=== PATIENT | male | born 1935 | race Caucasian/White ===

== ENCOUNTER → 2018-07-02 | Outpatient (CLI) | payer MEDICARE ==
--- NOTE | 2018-07-02 17:30 | RAD ---
Complete abdomen ultrasound study Clinical indications: Abnormal liver function test FINDINGS: No focal aneurysmal dilatation of the abdominal aorta is seen. No focal pancreatic mass is seen. The intrahepatic portion of the IVC is unremarkable. The liver measures 15.2 cm in length which is normal. No hepatic mass is seen. There is a cyst of the liver measuring 2.7 cm. The gallbladder is surgically absent. The extrahepatic bile duct measures 8 mm in caliber. The length of the right kidney is 11.1 cm. The length of left kidney is 11.9 cm. No hydronephrosis or renal mass or perinephric fluid collection is seen on either side. Cysts of the right kidney are seen. There is a prominent cyst of the left kidney measuring 8.1 cm. The spleen measures 10.6 cm in length which is normal. No ascites is seen. IMPRESSION: Extra hepatic bile duct is mildly dilated measuring 8 mm which may be seen normally after cholecystectomy. However, given the elevation of the abnormal liver function tests, distal common bile duct obstruction cannot be excluded. Electronically signed by: Aidan Polo MD (07/02/2018 5:27 PM) [email or web address]
== END | disposition home or self-care (01) ==
LOC: US 06-29 09:51
PROVIDERS: ATTEND Family Medicine
DX: N28.1 Cyst of kidney, acquired (principal); Z90.49 Acquired absence of other specified parts of digestive tract
CPT/HCPCS: 76700

== ENCOUNTER 2018-10-17 15:46 | Emergency (ER) | payer MEDICARE ==
[2018-10-17 16:06] VITALS: BP 130/81
[2018-10-17] MEDS: IV NORMAL SALINE 500ML 500 ML IV ONE (16:45)
--- NOTE | 2018-10-17 17:02 | PHYS DOC ---
Past History Past Medical History: Heart Disease Past Surgical History: No Surgical History Alcohol Use: None Drug Use: None Adult General Chief Complaint Chief Complaint: MECHANICAL FALL HPI HPI 83-year-old male presents with avulsion of the skin on his nose. The patient was carrying concrete paving stones to repair a retaining area to his house. As he was carrying the last stone he got a little bit dizzy and lost his balance. He fell forward and his nose hit a hernandez and then the ground. He tried to catch himself, but he was unable to keep his face from scraping across the hernandez. Norma abdul has some minor scrapes on the right cheek. He also has some mild abrasions on his hands. The abrasion on his nose took the entire distal tip of skin off. He washed it off at home. He was able to get the bleeding to stop. 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 He denies loss of consciousness. He has no other new complaints. Review of Systems Review of Systems Constitutional: Denies fever or chills [] Eyes: Denies change in visual acuity, redness, or eye pain [] HENT: Denies nasal congestion or sore throat [] Respiratory: Denies cough or shortness of breath [] Cardiovascular: No additional information not addressed in HPI [] GI: Denies abdominal pain, nausea, vomiting, bloody stools or diarrhea [] : Denies dysuria or hematuria [] Musculoskeletal: Denies back pain or joint pain [] Integument: Avulsion of the nose skin[] Neurologic: Denies headache, focal weakness or sensory changes [] Endocrine: Denies polyuria or polydipsia [] All other systems were reviewed and found to be within normal limits, except as documented in this note. Current Medications Current Medications Current Medications Medications (Trade) Dose Ordered Sig/Dari Start Time Stop Time Status Last Admin Dose Admin Sodium Chloride 500 ml @ 0 mls/hr 1X ONCE 10/17/18 16:45 10/17/18 16:46 DC Allergies Allergies Allergies Coded Allergies Type Severity Reaction Last Updated Verified No Known Drug Allergies 10/17/18 No Physical Exam Physical Exam Constitutional: Well developed, well nourished, no acute distress, non-toxic appearance. [] HENT: Normocephalic, atraumatic, bilateral external ears normal, oropharynx moist, no oral exudates, nose normal. [] Eyes: PERRLA, EOMI, conjunctiva normal, no discharge. [] Neck: Normal range of motion, no tenderness, supple, no stridor. [] Cardiovascular:Heart rate regular rhythm, no murmur [] Lungs & Thorax: Bilateral breath sounds clear to auscultation [] Abdomen: Bowel sounds normal, soft, no tenderness, no masses, no pulsatile masses. [] Skin: Minor abrasions to the right cheek and bilateral hands. Complete avulsion of the superficial skin of the distal nose, 2 cm x 2 cm.[] Back: No tenderness, no CVA tenderness. [] Extremities: No tenderness, no cyanosis, no clubbing, ROM intact, no edema. [] Neurologic: Alert and oriented X 3, normal motor function, normal sensory function, no focal deficits noted. [] Psychologic: Affect normal, judgement normal, mood normal. [] Current Patient Data Vital Signs Vital Signs Date Time Temp Pulse Resp B/P (MAP) Pulse Ox O2 Delivery O2 Flow Rate FiO2 10/17/18 16:06 109 16 96 Room Air EKG EKG [] Radiology/Procedures Radiology/Procedures [] Course & Med Decision Making Course & Med Decision Making Pertinent Labs and Imaging studies reviewed. (See chart for details) The end of the patient's nose is completely avulsed. There is no reasonable way to suture this. His left heal by secondary intention. Bleeding is controlled. Given this sounds a dirty environment, I will give the patient a prescription for Keflex for 7 days. It is also highly likely his tetanus is not up-to-date. The patient is not sure. We will give him a Tdap in the ED. the patient's labs are unremarkable. His INR is 2.7. This is within his expected range. He is stable for discharge at this time. [] Dragon Disclaimer Dragon Disclaimer This electronic medical record was generated, in whole or in part, using a voice recognition dictation system. Departure Departure: Impression: Primary Impression: Fall from standing Additional Impression: Avulsion of skin of face Disposition: HOME, SELF-CARE Condition: STABLE Referrals: AMADOR BLAKE MD (PCP) Patient Instructions: Deep Skin Avulsion Scripts Cephalexin (KEFLEX) 500 Mg Capsule 1 CAP PO TID for infection prophylaxis, #21 CAP Prov: ANKIT BARTLETT DO 10/17/18 Problem Qualifiers Primary Impression: Fall from standing Encounter type: initial encounter Qualified Codes: W19.XXXA - Unspecified fall, initial encounter Additional Impression: Avulsion of skin of face Encounter type: initial encounter Qualified Codes: S01.80XA - Unspecified open wound of other part of head, initial encounter ANKIT BARTLETT DO Oct 17, 2018 17:02
[2018-10-17 17:15] LABS: BASO # 0.1 x10^3/uL (0.0-0.2); BASO % 1 % (0-3); EOS # 0.1 x10^3/uL (0.0-0.7); EOS % 1 % (0-3); HEMATOCRIT 46.9 % (39.0-53.0); HEMOGLOBIN 15.6 g/dL (13.0-17.5); LYMPH # 1.1 x10^3/uL (1.0-4.8); LYMPH % 12 % (24-48); MEAN CORPUSCULAR HEMOGLOBIN 34 pg (25-35); MEAN CORPUSCULAR HGB CONC 33 g/dL (31-37); MEAN CORPUSCULAR VOLUME 101 fL (79-100); MONO # 0.7 x10^3/uL (0.0-1.1); MONO % 7 % (0-9); NEUT # 7.9 x10^3uL (1.8-7.7); NEUT % 80 % (31-73); PLATELET COUNT 206 x10^3/uL (140-400); RED BLOOD COUNT 4.63 x10^6/uL (4.30-5.70); RED CELL DISTRIBUTION WIDTH 14.4 % (11.5-14.5); WHITE BLOOD COUNT 9.9 x10^3/uL (4.0-11.0)
[2018-10-17] MEDS ORDERED: CEPH-264 PO (17:31)
[2018-10-17] MEDS: CEPHALEXIN 250 MG CAPSULE PO ONE (17:40)
[2018-10-17] MEDS: DIPHTH,PERTUSS(ACELL),TET TOX 0.5 ML DISP.SYRIN. VAX IM ONE (17:42)
[2018-10-17 17:52] LABS: ALBUMIN 3.9 g/dL (3.4-5.0); ALBUMIN/GLOBULIN RATIO 1.7 (1.0-1.7); CALCIUM 9.7 mg/dL (8.5-10.1); CREATININE 1.2 mg/dL (0.7-1.3); POTASSIUM 4.5 mmol/L (3.5-5.1); TOTAL BILIRUBIN 1.4 mg/dL (0.2-1.0); TOTAL PROTEIN 6.2 g/dL (6.4-8.2)
== END 2018-10-17 18:10 | disposition home or self-care (01) ==
LOC: ER 15:46
DX: S01.20XA Unspecified open wound of nose, initial encounter (principal); S60.512A Abrasion of left hand, initial encounter; S60.511A Abrasion of right hand, initial encounter; R42 Dizziness and giddiness; W18.09XA Striking against other object with subsequent fall, initial encounter; Y93.89 Activity, other specified; Y92.89 Other specified places as the place of occurrence of the external cause; Y99.8 Other external cause status
CPT/HCPCS: 36415; 80053; 85025; 85610; 85730; 90471; 90715; 99284; J7040

== ENCOUNTER 2019-03-01 15:26 | Emergency (ER) | payer MEDICARE ==
[~2019-03-01] VITALS: Ht 182.9 cm; Wt 84.8 kg
[2019-03-01 16:01] VITALS: BP 142/60
[2019-03-01 16:18] LABS: BASO % 0 % (0-3); EOS # 0.1 x10^3/uL (0.0-0.7); EOS % 1 % (0-3); HEMATOCRIT 45.9 % (39.0-53.0); HEMOGLOBIN 15.5 g/dL (13.0-17.5); LYMPH # 1.2 x10^3/uL (1.0-4.8); LYMPH % 12 % (24-48); MEAN CORPUSCULAR HEMOGLOBIN 33 pg (25-35); MEAN CORPUSCULAR HGB CONC 34 g/dL (31-37); MEAN CORPUSCULAR VOLUME 99 fL (79-100); MONO # 0.7 x10^3/uL (0.0-1.1); MONO % 7 % (0-9); NEUT # 7.9 x10^3uL (1.8-7.7); NEUT % 80 % (31-73); PLATELET COUNT 187 x10^3/uL (140-400); RED BLOOD COUNT 4.63 x10^6/uL (4.30-5.70); RED CELL DISTRIBUTION WIDTH 14.4 % (11.5-14.5); WHITE BLOOD COUNT 9.8 x10^3/uL (4.0-11.0)
--- NOTE | 2019-03-01 16:31 | RAD ---
CT HEAD WO CONTRAST History: Altered mental status. Elevated INR. Comparison: None. Technique: Noncontrast CT imaging was performed of the head. Exposure: One or more of the following individualized dose reduction techniques were utilized for this examination: 1. Automated exposure control 2. Adjustment of the mA and/or kV according to patient size 3. Use of iterative reconstruction technique. Findings: No intracranial hemorrhage. No mass effect. No hydrocephalus. Mildly prominent lateral ventricles likely related to central brain parenchymal volume loss. Brain parenchymal volume loss. Mild foci of decreased attenuation within the hemispheric white matter, most often due to chronic microvascular ischemia. Intracranial atheromatous calcific effusions. Extensive vascular calcifications with soft tissues. Imaged orbits are unremarkable. Imaged paranasal sinuses and mastoid air cells are clear. TMJ arthropathy. Impression: 1. No acute intracranial abnormality. Electronically signed by: Rafat Contreras DO (03/01/2019 4:28 PM) [email or web address]
--- NOTE | 2019-03-01 16:53 | RAD ---
PORTABLE CHEST 1V History: Altered mental status. Comparison: None. Findings: No consolidation or pleural effusion. Normal heart size. No pneumothorax. Prior median sternotomy. Impression: 1. No acute cardiopulmonary process. Electronically signed by: Rafat Contreras DO (03/01/2019 4:50 PM) [email or web address]
--- NOTE | 2019-03-01 16:54 | RAD ---
ABDOMEN SUPINE UPRIGHT History: Constipation Technique: Upright and supine views of the abdomen. Comparison: None. Findings: No pneumoperitoneum. No significant air-fluid levels. Imaged lung bases are unremarkable. Several nondilated air-filled loops of small bowel throughout the abdomen. Air and stool scattered throughout the imaged colon. Moderate colonic stool. Surgical clips right upper quadrant. Multilevel spondylosis. Vascular calcifications. Impression: 1. Nonspecific nonobstructed bowel gas pattern. Moderate colonic stool. Electronically signed by: Rafat Contreras DO (03/01/2019 4:51 PM) [facility]
--- NOTE | 2019-03-01 16:59 | PHYS DOC ---
Past History Past Medical History: A-Fib, Dementia, High Cholesterol, Heart Disease, Hypothyroid Past Surgical History: Cholecystectomy, Other Additional Past Surgical Histo: HEART VALVE 2000 Alcohol Use: None Drug Use: None Adult General Chief Complaint Chief Complaint: ABNORMAL LABS [facility] Patient is an 83-year-old male who presents from doctor's office with report of elevated INR. Patient reportedly had INR checked yesterday and was told to hold his Coumadin and had INR rechecked today and it was higher. Patient denies any complaints except for some constipation at this time. He denies any headache, chest pain or shortness of breath. He does indicate that he has not been able to move his bowels normally for some time and states that he has been taking stool softeners without any effect.[] Review of Systems Review of Systems Constitutional: Denies fever or chills [] Respiratory: Denies cough or shortness of breath [] Cardiovascular: No additional information not addressed in HPI [] GI: Denies abdominal pain, nausea, vomiting or diarrhea. Complains of constipation. [] Integument: Denies rash or skin lesions [] Neurologic: Denies headache, focal weakness or sensory changes [] All other systems were reviewed and found to be within normal limits, except as documented in this note. Allergies Allergies Allergies Coded Allergies Type Severity Reaction Last Updated Verified No Known Drug Allergies 10/17/18 No Physical Exam Physical Exam Constitutional: Well developed, well nourished, no acute distress, non-toxic appearance. [] HENT: Normocephalic, atraumatic, bilateral external ears normal, oropharynx moist, no oral exudates, nose normal. [] Eyes: PERRLA, EOMI, conjunctiva normal, no discharge. [] Neck: Normal range of motion, no tenderness, supple. [] Cardiovascular: Regular rate and rhythm[] Lungs & Thorax: Bilateral breath sounds clear to auscultation [] Abdomen: Bowel sounds normal, soft, no tenderness. [] Skin: Warm, dry, no erythema, no rash. [] Extremities: No tenderness, no cyanosis, no clubbing, ROM intact. [] Neurologic: Awake and alert, no focal deficits noted. [] Current Patient Data Vital Signs Vital Signs Date Time Temp Pulse Resp B/P (MAP) Pulse Ox O2 Delivery O2 Flow Rate FiO2 03/01/19 16:01 78 20 142/60 (87) 98 Room Air 03/01/19 15:30 98.5 Lab Results Laboratory Tests Test 03/01/19 16:00 White Blood Count 9.8 x10^3/uL (4.0-11.0) Red Blood Count 4.63 x10^6/uL (4.30-5.70) Hemoglobin 15.5 g/dL (13.0-17.5) Hematocrit 45.9 % (39.0-53.0) Mean Corpuscular Volume 99 fL (79-100) Mean Corpuscular Hemoglobin 33 pg (25-35) Mean Corpuscular Hemoglobin Concent 34 g/dL (31-37) Red Cell Distribution Width 14.4 % (11.5-14.5) Platelet Count 187 x10^3/uL (140-400) Neutrophils (%) (Auto) 80 % (31-73) H Lymphocytes (%) (Auto) 12 % (24-48) L Monocytes (%) (Auto) 7 % (0-9) Eosinophils (%) (Auto) 1 % (0-3) Basophils (%) (Auto) 0 % (0-3) Neutrophils # (Auto) 7.9 x10^3uL (1.8-7.7) H Lymphocytes # (Auto) 1.2 x10^3/uL (1.0-4.8) Monocytes # (Auto) 0.7 x10^3/uL (0.0-1.1) Eosinophils # (Auto) 0.1 x10^3/uL (0.0-0.7) Basophils # (Auto) 0.0 x10^3/uL (0.0-0.2) Magnesium Level 2.2 mg/dL (1.8-2.4) Troponin I Quantitative 0.050 ng/mL (0-0.055) EKG EKG [] Radiology/Procedures Radiology/Procedures [] Impressions: PROCEDURE: CT HEAD WO CONTRAST CT HEAD WO CONTRAST History: Altered mental status. Elevated INR. Comparison: None. Technique: Noncontrast CT imaging was performed of the head. Exposure: One or more of the following individualized dose reduction techniques were utilized for this examination: 1. Automated exposure control 2. Adjustment of the mA and/or kV according to patient size 3. Use of iterative reconstruction technique. Findings: No intracranial hemorrhage. No mass effect. No hydrocephalus. Mildly prominent lateral ventricles likely related to central brain parenchymal volume loss. Brain parenchymal volume loss. Mild foci of decreased attenuation within the hemispheric white matter, most often due to chronic microvascular ischemia. Intracranial atheromatous calcific effusions. Extensive vascular calcifications with soft tissues. Imaged orbits are unremarkable. Imaged paranasal sinuses and mastoid air cells are clear. TMJ arthropathy. Impression: 1. No acute intracranial abnormality. Electronically signed by: Rafat Contreras DO (03/01/2019 4:28 PM) [facility] Course & Med Decision Making Course & Med Decision Making Pertinent Labs and Imaging studies reviewed. (See chart for details) [] Dragon Disclaimer Dragon Disclaimer This electronic medical record was generated, in whole or in part, using a voice recognition dictation system. Departure Departure: Impression: Primary Impression: Elevated INR Additional Impressions: Warfarin-induced coagulopathy Constipation Disposition: HOME, SELF-CARE Condition: STABLE Referrals: AMADOR BLAKE MD (PCP) Patient Instructions: Constipation, Adult, Prothrombin Time, International Normalized Ratio, Warfarin Coagulopathy Problem Qualifiers Additional Impressions: Constipation Constipation type: unspecified constipation type Qualified Codes: K59.00 - Constipation, unspecified NOBLE DIAZ Jr., DO Mar 01, 2019 16:59
[2019-03-01] MEDS ORDERED: PHYTONADIONE 10 MG/ML AMPUL. SQ ONE (17:30)
== END 2019-03-01 18:17 | disposition home or self-care (01) ==
LOC: ER 15:26
DX: K59.00 Constipation, unspecified (principal); R79.1 Abnormal coagulation profile; D68.8 Other specified coagulation defects; I48.91 Unspecified atrial fibrillation; E78.00 Pure hypercholesterolemia, unspecified; E03.9 Hypothyroidism, unspecified; F03.90 Unspecified dementia, unspecified severity, without behavioral disturbance, psychotic disturbance, mood disturbance, and anxiety
CPT/HCPCS: 36415; 70450; 71045; 74019; 83735; 84484; 85025; 85610; 85730; 99285

== ENCOUNTER → 2019-03-01 | Outpatient (CLI) | payer MEDICARE ==
[~2019-03-01] MED LIST: CEPH-264 PO
== END | disposition home or self-care (01) ==
LOC: LAB 12:36
PROVIDERS: ATTEND Family Medicine
DX: I48.0 Paroxysmal atrial fibrillation (principal)
CPT/HCPCS: 36415; 85610

== ENCOUNTER 2020-03-16 20:26 | Inpatient (IN) | payer MEDICARE ==
[~2020-03-16] VITALS: Ht 182.9 cm; Wt 68.9 kg
--- NOTE | 2020-03-16 20:37 | PHYS DOC ---
Past History Past Medical History: A-Fib, Dementia, High Cholesterol, Heart Disease, Hypothyroid (KELVIN FLYNN APRN) Past Medical History: A-Fib, Anxiety, Arthritis, Arrhythmia, CAD, CHF, Dementia, Renal Disease, Other (YRN MILLAN MD) Past Surgical History: Cholecystectomy, Other Additional Past Surgical Histo: HEART VALVE 2000 (KELVIN FLYNN APRN) Past Surgical History: Coronary Bypass Surgery, Other (YRN MILLAN MD) Alcohol Use: None Drug Use: None (KELVIN FLYNN APRN) Adult General HPI HPI Patient is a 84-year-old male who was brought in to the emergency department by EMS for altered mental status, EMS obstetric anaesthetist reports that neighbors came over to the house and noticed blood on the floor, thus becoming alarmed and called EMS. EMS obstetric anaesthetist reports patient has only alert to self, did not note any injuries on the patient. EMS does not know any health information of the patient. Limited HPI related to patient's orientation to self only. Patient denies physical complaints or physical concerns. (KELVIN FLYNN APRN) Review of Systems Review of Systems 14 body systems of review of systems have been reviewed. See HPI for pertinent positives and negative responses, otherwise all other systems are negative, nonpertinent or noncontributory. (KELVIN FLYNN APRN) Allergies Allergies Allergies Coded Allergies Type Severity Reaction Last Updated Verified No Known Drug Allergies 10/17/18 No (KELVIN FLYNN APRN) Physical Exam Physical Exam Constitutional: Well developed, well nourished, no acute distress, non-toxic appearance. Patient is well dressed, in pleasant mood. HENT: Normocephalic, atraumatic, bilateral external ears normal, oropharynx moist, no oral exudates, nose normal. Eyes: PERRLA, EOMI, conjunctiva normal, no discharge. Neck: Normal range of motion, no tenderness, supple, no stridor. Cardiovascular:Heart rate irregular rhythm consistent with atrial fibrillation history, no murmur Lungs & Thorax: Bilateral breath sounds clear to auscultation Abdomen: Bowel sounds normal, soft, no tenderness, no masses, no pulsatile masses. Skin: Warm, dry, no erythema, no rash. Skin tear to left great toe measuring 2.5 cm no bleeding. Back: No tenderness, no CVA tenderness. Extremities: No tenderness, no cyanosis, no clubbing, ROM intact, no edema. Neurologic: Alert and oriented to self only, normal motor function, normal sensory function, no focal deficits noted. Psychologic: Affect normal, judgement normal, mood normal. (KELVIN FLYNN APRN) EKG EKG EKG performed by house respiratory therapist, heart rate 90 bpm shows atrial fibrillation with occasional PVCs, QTC 0.472, no acute STEMI, no ACS, no acute ischemia appreciated, EKG interpreted by ED attending Dr. Millan. (KELVIN FLYNN APRN) Radiology/Procedures Radiology/Procedures STATUS: REG ER ORD. PHYSICIAN: KELVIN FLYNN APRN REASON: MENTAL STATUS CHANGE, short of air PROCEDURE: CHEST PA & LATERAL Chest PA and lateral: Reason for examination: Mental status changes. Confusion. Short of breath. Postop changes are seen in the sternum. The heart size is normal. Mediastinum is unremarkable. Lung steele show some mild hazy infiltrates at both lung bases. There also appears to be a small left pleural effusion. No acute bony abnormalities are seen. Impression: Mild hazy infiltrates at both lung bases. Small left pleural effusion. CT head without contrast: Comparison is made to previous study dated 03/01/2019. Axial images were obtained through the brain. No contrast was administered. Exposure: One or more of the following individualized dose reduction techniques were utilized for this examination: 1. Automated exposure control 2. Adjustme nt of the mA and/or kV according to patient size 3. Use of iterative reconstruction technique. Ventricular systems are prominent but symmetric and unchanged. This is consistent with patient's advanced age and generalized cerebral atrophy. No midline shift is seen. There is no evidence of intracranial hemorrhage, acute infarct, mass or edema. There are patchy deep or ectatic changes in the frontal and parietal lobes. No abnormalities of seen at the orbits. The paranasal sinuses and mastoid air cells are clear. No acute abnormality seen in the skull. IMPRESSION: Cerebral atrophy with some microvascular ischemic type changes in the deep white matter of the frontal and parietal lobes. No acute intracranial abnormality evident. Electronically signed by: Vane Zamudio MD (03/16/2020 9:24 PM) [facility] DICTATED AND SIGNED BY: VANE ZAMUDIO MD DATE: 03/16/202118 CC: KELVIN FLYNN APRN; AMADOR BLAKE MD; YRN MILLAN MD ~MTH0 0 (KELVIN FLYNN APRN) Heart Score Risk Factors: Risk Factors: DM, Current or recent (<one month) smoker, HTN, HLP, family history of CAD, obesity. Risk Scores: Risk Factors: DM, Current or recent (<one month) smoker, HTN, HLP, family history of CAD, obesity. (KELVIN FLYNN APRN) HEART Score for Chest Pain: HEART Score for Chest Pain Response (Comments) Value History Moderately Suspicious 1 ECG Nonspecific Repolarizatio 1 Age > 65 2 Risk Factors 1 or 2 Risk Factors 1 Total 5 Course & Med Decision Making Course & Med Decision Making Pertinent Labs and Imaging studies reviewed. (See chart for details) Patient presents to the emergency department with mental status change, vital signs reviewed, patient is alert but only oriented to self, patient has a past medical history of atrial fibrillation and heart disease, and ER work-up was initiated. Pending urine lab results and BNP, discussed case with ED attending Dr. Millan who agreed to take over patient case at this time. (KELVIN FLYNN APRN) Course & Med Decision Making See Thad Flynn chart for details. Discussed presentation, testing and treatment with Dr. Varma. Admit to his service. 1. Altered mental status 2. History of dementia 3.. History of CADz status post bypass and aortic valve replacement 4. History of A. fib and dysrhythmia 5. Macrocytic RBC 102 6. Arthritis 7, Elevated Creat. 1.4 8. CHF- BNP 19,669 (YRN MILLAN MD) Dragon Disclaimer Dragon Disclaimer This electronic medical record was generated, in whole or in part, using a voice recognition dictation system. (KELVIN FLYNN APRN) Departure Departure: Referrals: AMADOR BLAKE MD (PCP) Laceration Repair Lac Repair Indication: Skin tear left great toe Procedure: The patient was placed in the appropriate position and anesthesia around the skin tear was not needed as patient did not complain of pain.. The area was then chlorhexidine scrub then rinsed with copious amounts of normal saline. The skin tear was closed with topical Dermabond skin glue. There were no additional lacerations. Total repaired wound length: 2.5 cm Other Items: [OTHER ITEMS] The patient tolerated the procedure well Complications: no complications noted (KELVIN FLYNN APRN) Dragon Disclaimer This chart was dictated in whole or in part using Voice Recognition software in a busy, high-work load, and often noisy Emergency Department environment. It may contain unintended and wholly unrecognized errors or omissions. (YRN MILLAN MD) Dragon Disclaimer This chart was dictated in whole or in part using Voice Recognition software in a busy, high-work load, and often noisy Emergency Department environment. It may contain unintended and wholly unrecognized errors or omissions. (YRN MILLAN MD) Attending Co-Sign Attending Co-Sign The patient was seen and interviewed as well as examined at the bedside. The chart was reviewed. The case was discussed. Agree with the plan of care. (YRN MILLAN MD) KELVIN FLYNN APRN Mar 16, 2020 20:37 YRN MILLAN MD Mar 16, 2020 22:24
[2020-03-16 21:11] LABS: BASO % 0 % (0-3); EOS % 0 % (0-3); HEMATOCRIT 44.4 % (39.0-53.0); HEMOGLOBIN 14.6 g/dL (13.0-17.5); LYMPH # 0.6 x10^3/uL (1.0-4.8); LYMPH % 7 % (24-48); MEAN CORPUSCULAR HEMOGLOBIN 34 pg (25-35); MEAN CORPUSCULAR HGB CONC 33 g/dL (31-37); MEAN CORPUSCULAR VOLUME 102 fL (79-100); MONO # 0.4 x10^3/uL (0.0-1.1); MONO % 5 % (0-9); NEUT # 7.8 x10^3uL (1.8-7.7); NEUT % 88 % (31-73); PLATELET COUNT 155 x10^3/uL (140-400); RED BLOOD COUNT 4.35 x10^6/uL (4.30-5.70); RED CELL DISTRIBUTION WIDTH 15.1 % (11.5-14.5); WHITE BLOOD COUNT 8.9 x10^3/uL (4.0-11.0)
[2020-03-16 21:19] LABS: CREATININE 1.4 mg/dL (0.7-1.3); GFR 48.4; POTASSIUM 4.4 mmol/L (3.5-5.1)
[2020-03-16 21:26] LABS: ACETAMIN < 2.0 mcg/mL (10-30)
--- NOTE | 2020-03-16 21:26 | EKG ---
[address] [address] Test Date: 2020-03-16 Test Time: 21:14:35 Pat Name: RUBÉN VILLATORO Department: Room: Gender: M Speech Therapy Director: MEGGAN : 1935 Requested By: KELVIN FLYNN Order Number: [id number] Reading MD: Measurements Intervals [place] Rate: 90 P: MA: QRS: 268 QRSD: 140 T: 32 QT: 382 QTc: 472 Interpretive Statements IRREGULAR RHYTHM, NO P-WAVE FOUND VENTRICULAR PREMATURE COMPLEX(ES) ABNORMAL RIGHT SUPERIOR AXIS DEVIATION LOW LIMB LEAD VOLTAGE NON SPECIFIC INTRAVENTRICULAR BLOCK RVH WITH REPOLARIZATION ABNORMALITY QRS(T) CONTOUR ABNORMALITY CONSISTENT WITH INFERIOR INFARCT PROBABLY OLD ABNORMAL ECG RI6.02 No previous ECG available for comparison
--- NOTE | 2020-03-16 21:26 | RAD ---
Chest PA and lateral: Reason for examination: Mental status changes. Confusion. Short of breath. Postop changes are seen in the sternum. The heart size is normal. Mediastinum is unremarkable. Lung f ields show some mild hazy infiltrates at both lung bases. There also appears to be a small left pleur al effusion. No acute bony abnormalities are seen. Impression: Mild hazy infiltrates at both lung bases. Small left pleural effusion. CT head without contrast: Comparison is made to previous study dated 03/01/2019. Axial images were obtained through the brain. No contrast was administered. Exposure: One or more of the following individualized dose reduction techniques were utilized for thi s examination: 1. Automated exposure control 2. Adjustment of the mA and/or kV according to patient size 3. Use of iterative reconstruction technique. Ventricular systems are prominent but symmetric and unchanged. This is consistent with patient's adva nced age and generalized cerebral atrophy. No midline shift is seen. There is no evidence of intracra nial hemorrhage, acute infarct, mass or edema. There are patchy deep or ectatic changes in the fronta l and parietal lobes. No abnormalities of seen at the orbits. The paranasal sinuses and mastoid air c ells are clear. No acute abnormality seen in the skull. IMPRESSION: Cerebral atrophy with some microvascular ischemic type changes in the deep white matter of the fronta l and parietal lobes. No acute intracranial abnormality evident. Electronically signed by: Vane Ahmadi MD (03/16/2020 9:24 PM) [facility]
[2020-03-16 21:27] LABS: ETHANOL < 10 mg/dL (0-10); SALIC < 2.8 mg/dL (2.8-20.0)
[2020-03-16 21:35] LABS: ALBUMIN/GLOBULIN RATIO 1.7 (1.0-1.7); MAGNESIUM 2.3 mg/dL (1.8-2.4); PHOSPHORUS 3.7 mg/dL (2.6-4.7); TOTAL BILIRUBIN 2.7 mg/dL (0.2-1.0); TOTAL PROTEIN 6.3 g/dL (6.4-8.2)
[2020-03-16] MEDS ORDERED: ONDANSETRON PF 4 MG/2 ML VIAL. IVP PRN (22:15)
[2020-03-16 22:59] LABS: BARBITURATES NEG (NEG); BENZODIAZEPINES NEG (NEG); CANNABINOIDS NEG (NEG); COCAINE NEG (NEG); METHADONE NEG (NEG); OPIATES NEG (NEG); PHENCYCLIDINE NEG (NEG)
[2020-03-16 23:00] LABS: AMPHETAMINE/METHAMPHETAMINE NEG (NEG)
[2020-03-16 23:03] LABS: BACTERIA,URINE 0 /HPF (0-FEW); BILIRUBIN,URINE NEG (NEG); CLARITY,URINE CLEAR; COLOR,URINE AMBER; GLUCOSE,URINE NEG (NEG); NITRITE,URINE NEG (NEG); RBC,URINE RARE /HPF (0-2); SQUAMOUS EPITHELIAL CELL,UR OCC /LPF; UROBILINOGEN,URINE 0.2 mg/dL (0.2 mg/dL); WBC,URINE RARE /HPF (0-4)
[2020-03-16] MEDS ORDERED: FUROSEMIDE 40 MG/4 ML VIAL IVP ONE (23:30)
[2020-03-17 00:11] VITALS: BP 113/67
--- NOTE | 2020-03-17 00:46 | NUR ---
The patient, RUBÉN VILLATORO, 84 y/o, M admitted by ALEYDA LONG MD, to room 107, was given written information regarding hospital policies, unit procedures and contact persons. Valuables were checked and left with the patient. Patient is pleasant, talkative, and cooperative. Unable to orient patient to room or gather medical history information. Will contact family for needed information. Patient answers yes or no questions, then follows questions with off-topic stories that do not follow logical order. Patient fell asleep quickly after assessments. Will continue to monitor.
[2020-03-17] MEDS: ACETAMINOPHEN 325 MG TABLET PO PRN ×2 (02:53→19:59)
[2020-03-17] MEDS ORDERED: IPRATRPIUM/ALBUTEROL 0.5/2.5MG 3 ML NEBU. ONE (05:44)
[2020-03-17] MEDS: IPRATRPIUM/ALBUTEROL 0.5/2.5MG 3 ML NEBU. NEB SCH ×4 (05:58→20:55)
--- NOTE | 2020-03-17 05:58 | NUR ---
Pt up to toilet a few times hourly. He was restless and confused. After a dose of Ativan, he slept soundly for four hours approximately. Pt is taking off his gown and brief repeatedly, insisting on sleeping naked. Pt is redirectable but shortly afterwards, forgets instructions. Will continue to monitor.
[2020-03-17 06:00] VITALS: BP 93/63
--- NOTE | 2020-03-17 06:15 | NUR ---
Pt fidgets with telemetry and IV tubing. IV reinforced and covered with elastic sleeve. Telemetry replaced on pt three times. Rhythm shows PVCs and pauses. Will continue to monitor.
[2020-03-17 06:20] LABS: BASO % 0 % (0-3); EOS # 0.1 x10^3/uL (0.0-0.7); EOS % 1 % (0-3); HEMATOCRIT 42.6 % (39.0-53.0); HEMOGLOBIN 14.1 g/dL (13.0-17.5); LYMPH # 0.9 x10^3/uL (1.0-4.8); LYMPH % 13 % (24-48); MEAN CORPUSCULAR HEMOGLOBIN 34 pg (25-35); MEAN CORPUSCULAR HGB CONC 33 g/dL (31-37); MEAN CORPUSCULAR VOLUME 101 fL (79-100); MONO # 0.5 x10^3/uL (0.0-1.1); MONO % 7 % (0-9); NEUT # 5.7 x10^3uL (1.8-7.7); NEUT % 79 % (31-73); PLATELET COUNT 140 x10^3/uL (140-400); RED BLOOD COUNT 4.22 x10^6/uL (4.30-5.70); RED CELL DISTRIBUTION WIDTH 14.8 % (11.5-14.5); WHITE BLOOD COUNT 7.2 x10^3/uL (4.0-11.0)
[2020-03-17 06:30] LABS: CALCIUM 9.8 mg/dL (8.5-10.1); CREATININE 1.1 mg/dL (0.7-1.3); GFR 63.9; POTASSIUM 3.9 mmol/L (3.5-5.1)
[2020-03-17] MEDS ORDERED: AZITHROMYCIN 250 MG TABLET. PO ONE (07:00)
[2020-03-17] MEDS ORDERED: IOHEXOL 350 MG/ML 100 ML VIAL. IV ONE (07:30)
[2020-03-17] MEDS: FUROSEMIDE 40 MG/4 ML VIAL IVP SCH (08:00)
[2020-03-17] MEDS: APIXABAN 2.5 MG TABLET PO SCH ×2 (08:01→19:59)
[2020-03-17] MEDS: AZITHROMYCIN 250 MG TABLET. PO SCH (08:01)
[2020-03-17] MEDS ORDERED: FUROSEMIDE 40 MG TABLET PO SCH (09:00)
--- NOTE | 2020-03-17 10:27 | RAD ---
Exam performed: CT pulmonary angiogram of the chest with contrast. Date: 03/17/2020. Comparison: 2 view chest from 03/16/2020 Indication: Confusion, shortness of breath Technique: Contiguous helical acquisitions are obtained through the chest during intravenous administ ration of [ 100 ] cc of [ Omnipaque 350 ] . [Sagittal and coronal reformatted images and ] MIP i mages were obtained and reviewed Findings: The structures at the thoracic inlet including both lobes of the thyroid gland appear normal. Pulmonary arterial opacification is adequate to evaluate for pulmonary embolus. There is no evidence for pulmonary embolism. The heart is mildly enlarged in size. No pericardial effusion is seen. No med iastinal or hilar lymphadenopathy is seen. Moderate left pleural effusion with small right pleural ef fusion. There is reflux of contrast into hepatic veins suggesting right heart failure. There is a sug gested cysts largest cyst in the left kidney, inadequately evaluated.. There are diffuse spondylotic changes throughout the thoracic spine with compression fracture involving L1 vertebral body. Previous median sternotomy. Impression: 1. The study is negative for pulmonary embolism. 2. Moderate left pleural effusion with underlying infiltrate or atelectasis. Small right pleural effu lexi PQRS Compliance Statement: One or more of the following individualized dose reduction techniques were utilized for this examinat ion: 1. Automated exposure control 2. Adjustment of the mA and/or kV according to patient size 3. Use of iterative reconstruction technique Electronically signed by: Nevaeh Jensen MD (03/17/2020 10:24 AM) [id number]
--- NOTE | 2020-03-17 10:35 | NUR ---
PATIENT WAS FOUND SITTING ON FLOOR FACING THE DOOR WAY. PT HAS CHAIR ALARM ON AND NURSING STAFF RESPONDED IMMANENTLY WHEN ALARM SOUNDED. PATIENT IS WEARING YELLOW NON SLIP SOCKS AT TIME OF DISCOVERY. PATIENT UNABLE TO ANSWER ANY QUESTIONS REGARDING SITUATION. PATIENT DOES NOT APPEAR TO HAVE [place] INJURIES OTHER THAN A SMALL 1IN X 0.5IN SKIN TEAR. DR LONG NOTIFIED OF INCIDENT AND FAMILY NOTIFIED.
[2020-03-17 10:51] VITALS: BP 148/79
[2020-03-17] MEDS ORDERED: WARF1TAB69 PO (15:20)
[2020-03-17] MEDS ORDERED: LEVO75TA5 PO (15:20)
[2020-03-17] MEDS ORDERED: POTA20TA4 PO (15:20)
[2020-03-17 15:35] VITALS: BP 130/81
[2020-03-17 18:54] VITALS: BP 133/84
--- NOTE | 2020-03-17 19:19 | HP ---
ADMIT DATE: 03/16/2020 HISTORY OF PRESENT ILLNESS: This is an 84-year-old male brought in by EMS. The patient was becoming increasingly disoriented, confused, somewhat combative. The patient is a poor historian and is not able to make much ado at home on his own anymore. He does have a , but she is not able to care for this 84-year-old gentleman who seems to have an acute dementia with Alzheimer type, a situation where he lost complete control of his mental facilities. The patient is quite agitated at times and not able to give any type of history. His history from the chart shows dementia, CHF, open heart surgery, coronary artery bypass surgery, valve replacement, anticoagulant therapy, cholecystectomy, renal disease, arthritis, hypothyroidism, anxiety. IMMUNIZATIONS: Vaccination for tetanus diphtheria up-to-date. FAMILY HISTORY: Unremarkable. ALLERGIES: No known allergies. MEDICATIONS: Difficult to find his medications including Keflex 500 q. 8 hours, warfarin 1 mg daily, potassium chloride, levothyroxine 75 mcg daily. It is hard to get a social history, but apparently says that he is a full code, but the patient appears to be totally incompetent and needs to be declared mentally incompetent, but will leave him a full code for now, although I think it is not advisable. REVIEW OF SYSTEMS: The patient is not able to give any real history. PHYSICAL EXAMINATION: VITAL SIGNS: Blood pressure 140/80, respiratory rate 18, pulse 83, afebrile. The patient is 95% on room air. HEENT: The patient's head appeared to be atraumatic, normocephalic. He does appear to be somewhat lethargic and sometimes agitated and disruptive to the nursing staff. The patient otherwise head was atraumatic. Eyes appeared to be PERRLA without jaundice. Mouth and throat: Poor dentition. NECK: Supple. LUNGS: Diminished. Poor movement of air. CARDIOVASCULAR: Regular sinus rhythm. ABDOMEN: Soft, nontender, no rebounding, no gag or guarding. Positive bowel sounds. EXTREMITIES: No clubbing, cyanosis, nor edema. Previous surgical scars noted. No atrophy noted. No edema noted. NEUROLOGIC: Basically alert, but confused, disoriented and somewhat agitated as indicated earlier. LABORATORY DATA: His hemoglobin was 14.42, white count 7, appears to be a fairly normal differential. Sodium and potassium 143 and 3.9. C-reactive protein 27. His BNP is up to 20,000. TSH was 21.93. Adjustments will be made on those medications there. He is on furosemide 40 mg daily. He is on low dose Eliquis. This is a very difficult cause since the patient can become quite somewhat disruptive. CTA demonstrates right heart failure. He is on the Lasix, old compression fracture of L1 and median sternotomy from previous cardiac surgery. IMPRESSION: Acute mental status change, acute exacerbation of dementia with Alzheimer disease, right sided congestive heart failure, agitation, essential hypertension, hypothyroidism. PLAN: The patient did have his medications adjusted and make further evaluation once all these are pulled together. ALEYDA LONG MD DR: MARCELA/nts JOB#: [id number] / [id number]
[2020-03-17] MEDS: LACTOBACILLUS RHAMNOSUS GG 1 CAPSULE. PO SCH (19:59)
[2020-03-17] MEDS: risperiDONE 0.25 MG TABLET. PO SCH (19:59)
--- NOTE | 2020-03-17 22:36 | NUR ---
Patient was loud and restless at start of shift. He ate a bowl of yogurt and drank water with his medications this evening. He has slept soundly for the last two hours. Will continue to monitor.
[2020-03-17 23:36] VITALS: BP 104/70
--- NOTE | 2020-03-18 01:00 | NUR ---
Pt awoke and got restless, agitated and combative. He continues to climb out of bed. When spoken to or encouraged to lie down, he has hit and kicked staff. Zyprexa given, followed by Ativan later. Will continue to monitor.
--- NOTE | 2020-03-18 05:04 | NUR ---
Pt slept soundly after Ativan administered. He moans or stirs occasionally and continues to strip off gown, brief and blankets while sleeping. Will continue to monitor.
[2020-03-18 05:25] VITALS: BP 93/59
[2020-03-18] MEDS: IPRATRPIUM/ALBUTEROL 0.5/2.5MG 3 ML NEBU. NEB SCH (05:27)
[2020-03-18 06:35] LABS: BASO % 0 % (0-3); EOS # 0.1 x10^3/uL (0.0-0.7); EOS % 1 % (0-3); HEMATOCRIT 40.6 % (39.0-53.0); HEMOGLOBIN 13.4 g/dL (13.0-17.5); LYMPH # 0.8 x10^3/uL (1.0-4.8); LYMPH % 8 % (24-48); MEAN CORPUSCULAR HEMOGLOBIN 33 pg (25-35); MEAN CORPUSCULAR HGB CONC 33 g/dL (31-37); MEAN CORPUSCULAR VOLUME 101 fL (79-100); MONO # 0.7 x10^3/uL (0.0-1.1); MONO % 7 % (0-9); NEUT % 84 % (31-73); PLATELET COUNT 151 x10^3/uL (140-400); RED BLOOD COUNT 4.03 x10^6/uL (4.30-5.70); RED CELL DISTRIBUTION WIDTH 15.2 % (11.5-14.5); WHITE BLOOD COUNT 9.6 x10^3/uL (4.0-11.0)
[2020-03-18 06:43] LABS: CALCIUM 9.5 mg/dL (8.5-10.1); CREATININE 1.3 mg/dL (0.7-1.3); GFR 52.7; POTASSIUM 3.4 mmol/L (3.5-5.1)
--- NOTE | 2020-03-18 08:00 | NUR ---
NURSES NOTE-PT IS RESTLESS, MOVING TOWARD THE EDGE OF THE BED. HE IS NOT ACTING AGGRESSIVELY, BUT APPEARS AGITATED. WILL ADMIN PRN DOSE OF ATIVAN TO DECREASE AGITATION.
[2020-03-18] MEDS: APIXABAN 2.5 MG TABLET PO SCH ×3 (08:03→21:00)
[2020-03-18] MEDS: FUROSEMIDE 40 MG/4 ML VIAL IVP SCH (08:03)
[2020-03-18] MEDS: LACTOBACILLUS RHAMNOSUS GG 1 CAPSULE. PO SCH ×3 (08:03→21:00)
[2020-03-18] MEDS: AZITHROMYCIN 250 MG TABLET. PO SCH ×2 (08:03→08:26)
[2020-03-18 10:28] VITALS: BP 117/84
[2020-03-18 15:31] VITALS: BP 152/83
--- NOTE | 2020-03-18 17:38 | NUR ---
EOS NOTE-PT HAS BEEN SOMNOLENT ALL DAY POST PRN DOSE OF ATIVAN. HE IS AROUSABLE TO CALL OF NAME, BUT HAS NOT MAINTAINED WAKEFULLNESS FOR ANY EXTENDED PERIOD OF TIME. VSS, FREQUENT TURNING ET NOE CARES. WILL CONTINUE TO OBSERVE ET NOTE CHANGES.
[2020-03-18] MEDS ORDERED: ELECTROLYTE (NON-ICU) PROTOCOL. MC PRN (18:15)
[2020-03-18] MEDS: CARVEDILOL 6.25 MG TABLET PO SCH (18:15)
[2020-03-18 19:51] VITALS: BP 132/86
[2020-03-18] MEDS: risperiDONE 0.25 MG TABLET. PO SCH (21:00)
[2020-03-18] MEDS ORDERED: METOPROLOL TART IMMED RELEASE 25 MG TABLET. PO SCH (21:00)
--- NOTE | 2020-03-18 21:41 | PN ---
DATE: SUBJECTIVE: An 84-year-old gentleman I was asked to be the primary physician by his , legal guardian. The patient is still very confused, disoriented. We need to clear him for possible SNF unit placement. Waiting for his swab to come back. He is being treated presently for congestive heart failure and trying to keep his control of his heart rate as well as his blood pressure. His pulse has been dropping down with the metoprolol. We gradually tapered him off; however, came back up, so we started him on Coreg 6.25 b.i.d. Blood pressure has come up, was around in the 90s systolic and now is up to 152, so we will attempt to titrate Coreg. OBJECTIVE: GENERAL: The patient is alert, but markedly confused, disoriented, and basically out of control at times with the nursing staff. VITAL SIGNS: Blood pressure is noted 152/83, respiratory rate 22, pulse 120, afebrile. The patient is not able to give any complaints. HEENT: Head atraumatic. Mouth and throat basically unchanged with poor dentition. NECK: Supple. LUNGS: Show decreased breath sounds, particularly in the left lower lobe where there appears to be a pleural effusion and his BNP was greater than approximately 20,000. His potassium is a little bit on the low side at 3.4, put on electrolyte replacement there. CARDIOVASCULAR: Tachycardic presently, but sinus with an occasional dropped beats. ABDOMEN: The patient's abdomen is soft, scaphoid, nontender. EXTREMITIES: No clubbing, cyanosis. Multiple bruises, but other than that, the patient remains basically stable, slight elevation of his troponin, but again due to other circumstances may be related to that. We will consult Cardiology in the morning and make further evaluation on his situation there. LABORATORY DATA: White count 9, hemoglobin 13, hematocrit 40, MCV of 101. B12 is pending. C-reactive protein 27. Sodium and potassium 145, 3.4, 26, 1.3. TSH was elevated at 22. Albumin was good at 4, so we will continue to monitor. IMPRESSION: Acute mental status change, encephalopathy, probable metabolic acute exacerbation of dementia with Alzheimer disease, right-sided congestive heart failure with left pleural effusion, agitation, essential hypertension, hypothyroidism. PLAN: Continue diuresis. We will consult Cardiology, Thursday morning and make further evaluation as indicated. ALEYDA LONG MD DR: MARCELA/genesis JOB#: [id number] / [id number]
[2020-03-18 22:58] VITALS: BP 115/74
--- NOTE | 2020-03-19 05:12 | NUR ---
Pt has been sleeping all night. Arousable to name. HS medications held d/t sedation.
[2020-03-19] MEDS: LEVOTHYROXINE 100 MCG TABLET PO SCH (05:17)
[2020-03-19 05:43] VITALS: BP 132/74
[2020-03-19 06:55] LABS: CALCIUM 10.4 mg/dL (8.5-10.1); CREATININE 1.2 mg/dL (0.7-1.3); GFR 57.8; POTASSIUM 3.8 mmol/L (3.5-5.1)
[2020-03-19] MEDS: LACTOBACILLUS RHAMNOSUS GG 1 CAPSULE. PO SCH ×2 (08:43→20:01)
[2020-03-19] MEDS: AZITHROMYCIN 250 MG TABLET. PO SCH (08:43)
[2020-03-19] MEDS: FUROSEMIDE 40 MG/4 ML VIAL IVP SCH (08:43)
[2020-03-19] MEDS: CARVEDILOL 6.25 MG TABLET PO SCH (08:43)
[2020-03-19] MEDS: APIXABAN 2.5 MG TABLET PO SCH ×2 (08:43→20:04)
--- NOTE | 2020-03-19 13:30 | NUR ---
[facility] reports that patient's BP=84/51; Manual BP is 100/Palp., unable to auscultate arterial sounds. Patient's radial pulse is strong, irregular. paged, new orders received. Patient removed PIV in left wrist, new PIV inserted in left upper forearm.
[2020-03-19] MEDS: AA 3%/ELECTROLYTE-TPN SOLN/GLY 1,000 ML IV SCH (14:34)
--- NOTE | 2020-03-19 15:00 | NUR ---
Patient is restless, attempting to get out of bed on his own. PRN medication provided per eMAR, will continue to monitor.
[2020-03-19 15:06] VITALS: BP 122/75
[2020-03-19 19:16] VITALS: BP 108/73
[2020-03-19] MEDS: risperiDONE 0.25 MG TABLET. PO SCH (20:01)
--- NOTE | 2020-03-19 22:21 | PN ---
DATE: SUBJECTIVE: The patient with change in mental status. Family has asked me to take care of the patient. The patient otherwise seems to be resting fairly comfortably. He is still not answering questions very well. Of course, according to his scans, some right sided heart failure. He has been on Lasix. Nurses called, said his blood pressure dropped down in the 90s. Held back on the Lasix and the Corgard. PHYSICAL EXAMINATION: VITAL SIGNS: Otherwise blood pressure 122/75, respiratory rate 18, pulse 100, afebrile. LUNGS: The patient's lungs are diminished. CARDIOVASCULAR: Tachycardic, but stable. ABDOMEN: Soft, nontender. PSYCHIATRIC: The patient is noted markedly confused, disoriented, unable to answer questions in an intelligible way. He has no spontaneous speech, but he is alert and will look at what you are talking. LABORATORY DATA: Otherwise, hemoglobin from yesterday 13 and 40 and his chemistries were basically are stable 148, 3.8. He is not drinking enough. We were trying to give him some fluids, glucose of 116, calcium elevated. His vitamin D level was low at 14. His TSH was elevated when we started him on levothyroxine. IMPRESSION: Acute mental status changes, encephalopathy, probable metabolic acute exacerbation of dementia with Alzheimer disease, right sided congestive heart failure, left pleural effusion, agitation, essential hypertension, hypothyroidism. PLAN: Continue with present. Adjust medications accordingly and see if we can get [facility]. ALEYDA LONG MD DR: MARCELA/genesis JOB#: [id number] / [id number]
[2020-03-20] MEDS: AA 3%/ELECTROLYTE-TPN SOLN/GLY 1,000 ML IV SCH ×2 (02:29→15:53)
[2020-03-20 04:51] VITALS: BP 130/87
[2020-03-20] MEDS: LEVOTHYROXINE 100 MCG TABLET PO SCH (05:00)
[2020-03-20] MEDS: AZITHROMYCIN 250 MG TABLET. PO SCH (08:24)
[2020-03-20] MEDS: LACTOBACILLUS RHAMNOSUS GG 1 CAPSULE. PO SCH ×2 (08:24→21:01)
[2020-03-20] MEDS: APIXABAN 2.5 MG TABLET PO SCH ×2 (08:24→21:00)
[2020-03-20 10:58] VITALS: BP 127/71
[2020-03-20 14:52] VITALS: BP 112/77
[2020-03-20 19:46] VITALS: BP 130/76
[2020-03-20] MEDS: risperiDONE 0.25 MG TABLET. PO SCH (21:01)
--- NOTE | 2020-03-20 21:45 | PN ---
DATE: SUBJECTIVE: An 84-year-old gentleman came in. He has had a change in mental status and the like. Acute mental status changes with encephalopathy. The patient is a little bit more alert today. He is being treated for a urinary tract infection. He is being treated for pneumonia and COVID-19 is negative. The patient otherwise seems to be a little bit more alert, being treated for the pneumonic process. His vitamin D level is low. He is placed on additional vitamin D. Otherwise, the patient is not able to communicate or give any substantive information. OBJECTIVE: VITAL SIGNS: Blood pressure 112/77, respiratory rate 20, pulse 80, afebrile. GENERAL: The patient is alert, but confused, disoriented, unable to get spontaneous speech and neurologically baseline. LUNGS: Diminished. CARDIOVASCULAR: Stable. ABDOMEN: Soft, nontender. NEUROLOGIC: The patient is not eating very well, not drinking very well, not communicating very well. Severe end-stage Alzheimer's disease with agitation. The patient will be monitored carefully. IMPRESSION: Change in mental status, acute end-stage Alzheimer's disease with severe dementia; pneumonia of unspecified etiology; vitamin D deficiency; encephalopathy, acute exacerbation; pleural effusion; essential hypertension; hypothyroidism. PLAN: The patient continued to be monitored. We will discuss with family their situation as far as placement or possible hospice placement. ALEYDA LONG MD DR: MARCELA/genesis JOB#: [id number] / [id number]
[2020-03-20 22:26] VITALS: BP 87/56
[2020-03-21] MEDS: LEVOTHYROXINE 100 MCG TABLET PO SCH (05:02)
[2020-03-21] MEDS: AA 3%/ELECTROLYTE-TPN SOLN/GLY 1,000 ML IV SCH ×2 (05:14→21:00)
[2020-03-21 05:48] VITALS: BP 128/74
[2020-03-21] MEDS ORDERED: SODIUM PHOSPHATES 19/7GM 133 ML ENEMA. PR PRN (07:30)
[2020-03-21] MEDS: APIXABAN 2.5 MG TABLET PO SCH ×2 (07:33→20:49)
[2020-03-21] MEDS: DOCUSATE 100 MG/10 ML SOLUTION. PO SCH (07:33)
[2020-03-21] MEDS: LACTOBACILLUS RHAMNOSUS GG 1 CAPSULE. PO SCH ×2 (07:33→20:49)
[2020-03-21] MEDS: AZITHROMYCIN 250 MG TABLET. PO SCH (07:34)
[2020-03-21 10:34] VITALS: BP 89/54
[2020-03-21 15:25] VITALS: BP 126/77
[2020-03-21 19:52] VITALS: BP 125/83
[2020-03-21] MEDS: risperiDONE 0.25 MG TABLET. PO SCH (20:49)
[2020-03-21 22:35] VITALS: BP 132/69
[2020-03-22] MEDS: LEVOTHYROXINE 100 MCG TABLET PO SCH (04:57)
[2020-03-22 05:30] VITALS: BP 125/92
[2020-03-22] MEDS: LACTOBACILLUS RHAMNOSUS GG 1 CAPSULE. PO SCH (08:41)
[2020-03-22] MEDS: AZITHROMYCIN 250 MG TABLET. PO SCH (08:41)
[2020-03-22] MEDS: APIXABAN 2.5 MG TABLET PO SCH (08:41)
[2020-03-22] MEDS: DOCUSATE 100 MG/10 ML SOLUTION. PO SCH (08:41)
[2020-03-22 10:49] VITALS: BP 135/79
[2020-03-22] MEDS ORDERED: AZIT250T6 PO (12:03)
[2020-03-22] MEDS ORDERED: APIX2.5T PO (12:03)
[2020-03-22] MEDS ORDERED: DOCU100C28 PO (12:03)
[2020-03-22] MEDS ORDERED: LORA-254 PO (12:04)
[2020-03-22] MEDS ORDERED: OLAN5TAB9 PO (12:05)
[2020-03-22] MEDS ORDERED: RISP0.5T24 PO (12:06)
[2020-03-22] MEDS ORDERED: NA P133E2 RC (12:06)
--- NOTE | 2020-03-22 12:10 | NUR ---
DISCHARGE NOTE-PT LOADED ONTO COT WITH CREW FROM [facility]. PIV HAS BEEN DC'D, ET ALL POSSESSIONS ARE SENT WITH PATIENT AT THIS TIME. REPORT CALLED TO DORA BUR[facility].
--- NOTE | 2020-03-22 13:59 | PN ---
DATE: SUBJECTIVE: Came in with change in mental status and a pneumonic process. The patient still shows signs of severe dementia with acute Alzheimer's affect and unable to take care of himself. OBJECTIVE: VITAL SIGNS: The patient's blood pressure is vacillated between 89/54 and 126/77, respiratory rate 18, pulse 96, afebrile. Apparently, he is aspirating everything according to the bedside swallowing study, so he will probably need a feeding tube or go on to some other type of therapy. In any case, the patient basically talks a little bit, he is responsive, but that does not make any sense of what he is saying. ____ utter a few words and showing severe deficits, neural degenerative deficits. LUNGS: Diminished, primarily decreased on the left lower lobe. CV: Regular sinus rhythm. ABDOMEN: Soft, nontender, scaphoid. EXTREMITIES: No clubbing, cyanosis. IMPRESSION: Acute mental status change, encephalopathy, acute exacerbation of dementia with Alzheimer disease, right-sided congestive heart failure, left pleural effusion, marked aspiration, probable aspiration pneumonia, essential hypertension, hypothyroidism. We will discuss with the family what they wish to have done and make further adjustments on that basis. ALEYDA LONG MD DR: MARCELA/genesis JOB#: [id number] / [id number]
--- NOTE | 2020-04-16 18:41 | DS ---
DATE OF DISCHARGE: 03/22/2020 HOSPITAL COURSE: An 85-year-old male who came in via EMS. The patient had become increasingly disoriented, confused, combative, poor historian, not making much sense. The patient has severe acute dementia with Alzheimer type situation where he lost complete control of his mental facilities. The patient was quite agitated. He also was noted to have congestive heart failure and alike as a history. In any case, the patient because of his marked acute mental status changes, metabolic encephalopathy, the patient was admitted to the hospital. The patient was monitored carefully. The patient was in no code. The patient was stabilized as appropriately as possible and he was negative for COVID-19. The patient was then transferred out to a nursing facility since his family could no longer take care of him at home overall. His labs, hemoglobin and hematocrit were basically stable. The patient's sodium and potassium 145 and 3.8. D-dimer was elevated. A CTA was performed, showed negative for PE, did have moderate pleural effusion and right-sided heart failure. In any case, the patient made stable progress. Anyway, he was stabilized and then transferred to a custodial facility for further care. He was sent to [facility]. FINAL IMPRESSION: Metabolic encephalopathy, acute change in mental status, acute end-stage Alzheimer's disease with severe dementia, pneumonia of unspecified etiology, vitamin D deficiency, encephalopathy, acute exacerbation of chronic obstructive pulmonary disease with infectious process, pleural effusion, essential hypertension, hypothyroidism, and right sided heart failure. The patient will be placed on a heart healthy diet, decreased activity and he will be monitored at the nursing facility as noted. He is a DNR. ALEYDA LONG MD DR: MARCELA/genesis JOB#: [id number] / [id number]
== END 2020-03-22 12:16 | DRG 177 ==
LOC: ER 20:26 → 1 SOUTH 22:59
PROVIDERS: ADMIT Family Medicine; ATTEND Family Medicine
DX: J69.0 Pneumonitis due to inhalation of food and vomit (principal); N17.0 Acute kidney failure with tubular necrosis; G92 Toxic encephalopathy; J90 Pleural effusion, not elsewhere classified; N39.0 Urinary tract infection, site not specified; I50.810 Right heart failure, unspecified; E03.9 Hypothyroidism, unspecified; E55.9 Vitamin D deficiency, unspecified; E78.00 Pure hypercholesterolemia, unspecified; F02.80 Dementia in other diseases classified elsewhere, unspecified severity, without behavioral disturbance, psychotic disturbance, mood disturbance, and anxiety; G30.9 Alzheimer's disease, unspecified; I11.0 Hypertensive heart disease with heart failure; I25.10 Atherosclerotic heart disease of native coronary artery without angina pectoris; I48.91 Unspecified atrial fibrillation; Z95.2 Presence of prosthetic heart valve; Z95.1 Presence of aortocoronary bypass graft; F41.9 Anxiety disorder, unspecified; M19.90 Unspecified osteoarthritis, unspecified site; Z20.828 Contact with and (suspected) exposure to other viral communicable diseases
CPT/HCPCS: 12001; 36415; 70450; 71046; 71275; 80048; 80053; 80307; 80329; 81001; 82140; 82306; 82553; 82607; 83605; 83615; 83735; 83880; 84100; 84443; 84484; 85025; 85379; 85610; 85730; 86140; 93005; 94640; 96374; G0480; J0696; J1940; J2060; P9612; Q9967; U0003; 92610; 97530; 99285-25